=== PATIENT | female | born 1995 | race Caucasian/White ===

== ENCOUNTER 2017-07-21 20:21 | Emergency (ER) | payer SELFPAY ==
[2017-07-21 20:21] VITALS: BMI 26.4
[2017-07-21 21:44] VITALS: BP 105/68; RESP 20; O2SAT 98
--- NOTE | 2017-07-21 23:03 | C.PDOC ---
History Of Present Illness 21 year old female presents complaining of cough, onset last week. States she developed throat pain and body aches today, which have been worsening since onset. Patient also reports chills and subjective fever. No vomiting or diarrhea. Took Tylenol at home with minimal relief. Time Seen by Provider: 07/21/17 21:54 Chief Complaint (Nursing): Flu-like Symptoms History Per: Patient, Intermediate Manager (Anjelica #[id number]) History/Exam Limitations: no limitations Onset/Duration Of Symptoms: Days (x1) Current Symptoms Are (Timing): Still Present Location Of Pain: Throat, Diffuse Myalgias Past Medical History Reviewed: Historical Data, Nursing Documentation, Vital Signs Vital Signs: Last Vital Signs Temp 98.7 F 07/21/17 23:05 Pulse 122 H 07/21/17 21:36 Resp 20 07/21/17 21:36 BP 105/68 07/21/17 21:36 Pulse Ox 98 07/21/17 23:08 - Medical History PMH: No Chronic Diseases Other PMH: Bilateral hearing loss Family History: States: Unknown Family Hx - Social History Hx Tobacco Use: No Hx Alcohol Use: No Hx Substance Use: No - Immunization History Hx Tetanus Toxoid Vaccination: Yes Hx Influenza Vaccination: No Hx Pneumococcal Vaccination: Yes Review Of Systems Constitutional: Positive for: Fever, Chills, Other (Body aches) ENT: Positive for: Throat Pain Respiratory: Positive for: Cough. Negative for: Shortness of Breath Gastrointestinal: Negative for: Vomiting, Diarrhea Physical Exam - Physical Exam Appears: No Acute Distress, Other (WDWN) Skin: No Rash Head: Atraumatic, Normacephalic Eye(s): bilateral: PERRL, EOMI Ear(s): Bilateral: Other (wearing hearing aids) Oral Mucosa: Moist Throat: Erythema (with tonsillar enlargement), No Exudate Neck: Supple Chest: No Tenderness Cardiovascular: Rhythm Regular Respiratory: Other (clear to auscultation bilaterally) Gastrointestinal/Abdominal: Bowel Sounds (Normoactive), Soft, No Tenderness, No Distention, No Guarding, No Rebound Extremity: No Tenderness, No Swelling Neurological/Psych: Other (Alert, no focal deficits) ED Course And Treatment O2 Sat by Pulse Oximetry: 98 (RA) Pulse Ox Interpretation: Normal Medical Decision Making Medical Decision Making: Patient given Tylenol 975mg and Tamiflu 75mg in the ED. Ordered rapid strep test. 1140 pm rapid strep neg, d/c home with tamiflu and tylenol Disposition Counseled Patient/Family Regarding: Studies Performed, Diagnosis, Need For Followup, Rx Given - Disposition Referrals: Rich Perrin MD [Staff Provider] - Disposition: HOME/ ROUTINE Disposition Time: 23:42 Condition: STABLE Additional Instructions: Gsrgle con agua salada tibia varias veces al da para el dolor de garganta. [place] Tylenol cada 4 a 6 horas para aliviar el dolor y la fiebre. Sherita mayor cantidad de lquidos, t con miel y limn hooper. Incrementa el reposo en cama. Giuliana un seguimiento con mccann mdico en unos pocos ignacio. Tamilflu Tlyneol Prescriptions: Acetaminophen [Tylenol 325mg tab] 650 mg PO Q4 #50 tab Oseltamivir Phosphate [Tamiflu] 75 mg PO BID #10 capsule Instructions: Influenza (ED) Forms: Gen Discharge Inst [place], [place] ([place]) - Clinical Impression Clinical Impression: Influenza-like illness - PA / QUALITY REVIEW SPECIALIST / Resident Statement MD/DO has reviewed & agrees with the documentation as recorded. - Scribe Statement The provider has reviewed the documentation as recorded by the Scribe (Lia Campbell) All medical record entries made by the Scribe were at my direction and personally dictated by me. I have reviewed the chart and agree that the record accurately reflects my personal performance of the history, physical exam, medical decision making, and the department course for this patient. I have also personally directed, reviewed, and agree with the discharge instructions and disposition.
[2017-07-21 23:05] VITALS: TEMP 98.7
[2017-07-21 23:46] VITALS: PULSE 74
== END 2017-07-22 00:05 | disposition home or self-care (01) ==
LOC: C.ER 20:21
DX: J11.1 Influenza due to unidentified influenza virus with other respiratory manifestations (principal)